=== PATIENT | female | born 1995 | race Native Hawaiian/Other Pacific Islander ===

== ENCOUNTER 2018-03-16 08:30 | Outpatient (CLI) | payer BC | END 2018-03-16 19:57 | disposition home or self-care (01) | LOC: US 08:30 | DX: R10.84 Generalized abdominal pain (principal) ==

== ENCOUNTER 2021-03-25 14:49 | Emergency (ER) | payer OTHER ==
[~2021-03-25] VITALS: Ht 152.4 cm; Wt 59.0 kg
[2021-03-25 15:50] LABS: PLATELET COUNT 241 K/uL (152-353)
[2021-03-25 16:00] LABS: POTASSIUM 3.5 mmol/L (3.6-5.2)
[2021-03-25 17:10] VITALS: BP 107/63; TEMP 98.5
== END 2021-03-25 17:10 | disposition home or self-care (01) ==
LOC: ED 14:49
PROVIDERS: Family Medicine
DX: R51.9 Headache, unspecified (principal); R11.2 Nausea with vomiting, unspecified
CPT/HCPCS: 80053; 85027; 85610; 85730; 99283